=== PATIENT | female | born 1930 | race Caucasian/White ===

== ENCOUNTER 2017-07-05 23:17 | Emergency (ER) | payer MEDICARE, OTHER ==
[2017-07-06 00:47] VITALS: BP 172/82
--- NOTE | 2017-07-06 01:09 | EDM.PDOC ---
ED HPI GENERAL MEDICAL PROBLEM - General Chief Complaint: Lower Extremity Injury/Pain Stated Complaint: LEFT LEG PAIN Time Seen by Provider: 07/06/17 00:55 Source of Information: Reports: Patient History Limitations: Reports: No Limitations - History of Present Illness INITIAL COMMENTS - FREE TEXT/NARRATIVE: 87 yo female here with onset of L leg pain yesterday that is getting worse. No SOB or pleuritic chest pain. Is worried about a DVT. Has not discussed with her provider. No fever or chills. Onset Date: 07/04/17 Duration: Hour(s):, Getting Worse Location: Reports: Lower Extremity, Left Quality: Reports: Ache Severity: Moderate Improves with: Reports: Immobilization, Rest Worsens with: Reports: Movement Context: Reports: Other (experienced a savage abrasion last week before this all began. 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 Pain Score (Numeric/FACES): 6 - Related Data Allergies Allergy/AdvReac Type Severity Reaction Status Date / Time Penicillins Allergy Intermediate Rash Verified 07/06/17 00:55 sulindac [From Clinoril] Allergy Mild Cannot Verified 07/06/17 00:55 Remember amlodipine besylate AdvReac Intermediate Nausea Verified 07/06/17 00:55 [From Norvasc] ciprofloxacin HCl AdvReac Intermediate Nausea Verified 07/06/17 00:55 [From Cipro] Sulfa (Sulfonamide AdvReac Intermediate Nausea and Verified 07/06/17 00:55 Antibiotics) Vomiting ciprofloxacin [From Cipro] AdvReac Mild Nausea Verified 07/06/17 00:55 levofloxacin [From Levaquin] AdvReac Mild Muscle Verified 07/06/17 00:55 Aches metronidazole [From Flagyl] AdvReac Mild Nausea Verified 07/06/17 00:55 Metronidazole HCl AdvReac Mild Nausea Verified 07/06/17 00:55 [From Flagyl] indomethacin AdvReac Nausea and Verified 07/06/17 00:55 Vomiting Home Meds: Home Meds Aspirin [Adult Low Dose Aspirin EC] 81 mg PO DAILY 08/21/13 [History] Clopidogrel [Plavix] 75 mg PO DAILY 08/21/13 [History] Methylcellulose [Citrucel] 15 - 20 gm PO ASDIRECTED PRN 08/21/13 [History] atorvaSTATin [Lipitor] 40 mg PO BEDTIME 08/21/13 [History] Calcium Carbonate/Vitamin D3 [Cvs Calcium + Vitamin D3 Sftgl] 1 each PO BID [History] Nitroglycerin [Nitrostat] 0.4 mg SL ASDIRECTED PRN 05/18/14 [History] Acetaminophen [Tylenol] 325 - 650 mg PO Q4H PRN 09/19/14 [History] Polyethylene Glycol 3350 [MiraLAX] 17 gm PO DAILY PRN 09/19/14 [History] Losartan [Cozaar] 50 mg PO BID #60 tablet 10/27/14 [Rx] Lutein 1 tab PO DAILY 03/07/15 [History] Furosemide [Furosemide] 2 tab PO DAILY 10/06/16 [History] Isosorbide Mononitrate [Isosorbide Mononitrate ER] 1 tab PO DAILY 10/06/16 [ History] Cephalexin 500 mg PO Q6H #30 tablet 07/06/17 [Rx] Cranberry 1 tab PO DAILY 07/06/17 [History] Loratadine [Claritin] 10 mg PO DAILY 07/06/17 [History] Pantoprazole 20 mg PO BEDTIME 07/06/17 [History] Past Medical History HEENT History: Reports: Cataract, Impaired Vision Cardiovascular History: Reports: CAD, Heart Failure, Heart Murmur, Hypertension , [place] Respiratory History: Reports: None Gastrointestinal History: Reports: GERD Genitourinary History: Reports: Acute Renal Failure, Other (See Below) Other Genitourinary History: had acute renal failure from sepsis in 2014. 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 OB/BYN History: prolapsed uterus surgery Musculoskeletal History: Reports: Osteoarthritis Other Musculoskeletal History: spinal stenosis Neurological History: Reports: None Other Hematologic History: sepsis Dermatologic History: Reports: Cellulitis - Infectious Disease History Infectious Disease History: Reports: Chicken Pox, Measles, Mumps - Past Surgical History HEENT Surgical History: Reports: Cataract Surgery Cardiovascular Surgical History: Reports: Coronary Artery Bypass Female Surgical History: Reports: Other (See Below) Other Female Surgeries/Procedures: bladder sling (mesh) Musculoskeletal Surgical History: Reports: None Social & Family History - Tobacco Use Smoking Status *Q: Never Smoker Second Hand Smoke Exposure: No - Caffeine Use Caffeine Use: Reports: Coffee - Alcohol Use Days Per Week of Alcohol Use: 0 - Recreational Drug Use Recreational Drug Use: No Review of Systems - Review of Systems Review Of Systems: See Below Constitutional: Reports: No Symptoms. Denies: Chills, Fever Respiratory: Reports: No Symptoms. Denies: Shortness of Breath, Pleuritic Chest Pain Cardiovascular: Reports: No Symptoms Musculoskeletal: Reports: Leg Pain (L calf) Skin: Reports: Erythema (Slight redness of the left leg below the knee. ) Neurological: Reports: No Symptoms Psychiatric: Reports: No Symptoms ED EXAM, GENERAL - Physical Exam Exam: See Below Exam Limited By: No Limitations General Appearance: Alert, WD/WN, No Apparent Distress Ears: Normal Canal, Hearing Grossly Normal Ear Exam: Bilateral Ear: Auricle Normal, Canal Normal Nose: Normal Inspection, Normal Mucosa, No Blood Throat/Mouth: Normal Inspection, Normal Voice, No Airway Compromise Head: Atraumatic, Normocephalic Neck: Normal Inspection, Supple, Non-Tender Respiratory/Chest: No Respiratory Distress, Lungs Clear, No Accessory Muscle Use Cardiovascular: Regular Rate, Rhythm Extremities: Pedal Edema (trace to 1+ pitting edema to both LE's below the knees. ), Leg Pain (L calf tender) Neurological: Alert, Oriented, CN II-XII Intact, No Motor/Sensory Deficits Psychiatric: Normal Affect, Normal Mood Skin Exam: Warm, Dry, Intact, No Rash, Erythema (slight redness to the L leg below the knee, not hot to touch. ) Lymphatic: No Adenopathy Course - Vital Signs Text/Narrative:: Acetaminophen 1000 mg po, Cephalexin 500 mg po Last Recorded V/S: Last Vital Signs Temp 35.8 C 07/06/17 00:46 Pulse 97 07/06/17 00:46 Resp 20 07/06/17 00:46 BP 172/82 H 07/06/17 00:46 Pulse Ox 97 07/06/17 00:46 - Orders/Labs/Meds Labs: Laboratory Tests 07/06/17 07/06/17 Range/Units 01:10 01:10 WBC 13.0 H (4.5-11.0) K/uL RBC 4.30 (3.30-5.50) M/uL Hgb 12.5 (12.0-15.0) g/dL Hct 38.1 (36.0-48.0) % MCV 89 (80-98) fL MCH 29 (27-31) pg MCHC 33 (32-36) % Plt Count 201 (150-400) K/uL D-Dimer, Quantitative 544 H (0.0-400.0) ng/mL Meds: Medications Discontinued Medications Generic Name Dose Route Start Last Admin Trade Name Sugar PRN Reason Stop Dose Admin Acetaminophen 1,000 mg 07/06/17 01:43 Tylenol Extra Strength PO 07/06/17 01:44 ONETIME ONE Cephalexin 500 mg 07/06/17 01:43 Keflex PO 07/06/17 01:44 ONETIME ONE Departure - Departure Time of Disposition: 02:00 Disposition: Home, Self-Care 01 Condition: Good Clinical Impression: Cellulitis Qualifiers: Site of cellulitis: extremity Site of cellulitis of extremity: lower extremity Laterality: left Qualified Code(s): L03.116 - Cellulitis of left lower limb - Discharge Information Prescriptions: Cephalexin 500 mg PO Q6H #30 tablet Referrals: Maciel Salvador MD [Primary Care Provider] - Forms: ED Department Discharge Care Plan Goals: Cephalexin 500 mg every 6 hrs with food. Acetaminophen 1000 mg every 6 hrs as needed for pain relief. Recheck with your provider on Monday afternoon if possible. Keep that leg elevated.
[2017-07-06] MEDS ORDERED: Cephalexin 250 MG Cap PO ONE (01:43)
[2017-07-06] MEDS ORDERED: Acetaminophen 500 MG Tab PO ONE (01:43)
== END 2017-07-06 02:00 | disposition home or self-care (01) ==
LOC: JP.ED 23:17
DX: L03.116 Cellulitis of left lower limb (principal); I25.2 Old myocardial infarction; I11.0 Hypertensive heart disease with heart failure; I50.9 Heart failure, unspecified; I25.10 Atherosclerotic heart disease of native coronary artery without angina pectoris; K21.9 Gastro-esophageal reflux disease without esophagitis; M19.90 Unspecified osteoarthritis, unspecified site; Z98.49 Cataract extraction status, unspecified eye; Z95.1 Presence of aortocoronary bypass graft; Z98.890 Other specified postprocedural states; Z79.82 Long term (current) use of aspirin; Z79.02 Long term (current) use of antithrombotics/antiplatelets; Z79.899 Other long term (current) drug therapy; Z88.0 Allergy status to penicillin; Z88.1 Allergy status to other antibiotic agents; Z88.2 Allergy status to sulfonamides; Z88.8 Allergy status to other drugs, medicaments and biological substances
CPT/HCPCS: 36415; 85027; 85379; 99284; A9270

== ENCOUNTER 2018-03-22 15:46 | Emergency (ER) | payer MEDICARE, OTHER ==
--- NOTE | 2018-03-22 16:00 | EDM.PDOC ---
ED HPI GENERAL MEDICAL PROBLEM - General Chief Complaint: Cardiovascular Problem Stated Complaint: CHEST PAINS Time Seen by Provider: 03/22/18 15:58 Source of Information: Reports: Patient, Old Records, RN History Limitations: Reports: Other (Vague historian) - History of Present Illness INITIAL COMMENTS - FREE TEXT/NARRATIVE: 87 yo female here after onset of substernal chest pain that began while eating lunch about 12:30pm today. She may have mild associated SOB, but no nausea, diaphoresis or radiation of the pain. She took NTG SL x 2 without relief. Has a pHx of GERD and states that she cannot often distinguish her heart pain from her heart burn pain. Does get SOB with mild exertion, this is not new. No recent calf pain or leg swelling. Onset: Today Onset Date: 03/22/18 Onset Time: 12:30 Duration: Hour(s): Location: Reports: Chest (sternal) Quality: Reports: Other (Not able to describe just says "it hurts") Severity: Mild Improves with: Reports: None (not NTG) Worsens with: Reports: Other (unknown) Context: Reports: Other (Hx of both CAD and GERD) Associated Symptoms: Reports: Chest Pain. 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) Anterior Chest Pain Score (Numeric/FACES): 5 - Related Data Allergies Allergy/AdvReac Type Severity Reaction Status Date / Time Penicillins Allergy Intermediate Rash Verified 03/22/18 15:56 sulindac [From Clinoril] Allergy Mild Cannot Verified 03/22/18 15:56 Remember amlodipine besylate AdvReac Intermediate Nausea Verified 03/22/18 15:56 [From Norvasc] ciprofloxacin HCl AdvReac Intermediate Nausea Verified 03/22/18 15:56 [From Cipro] Sulfa (Sulfonamide AdvReac Intermediate Nausea and Verified 03/22/18 15:56 Antibiotics) Vomiting ciprofloxacin [From Cipro] AdvReac Mild Nausea Verified 03/22/18 15:56 levofloxacin [From Levaquin] AdvReac Mild Muscle Verified 03/22/18 15:56 Aches metronidazole [From Flagyl] AdvReac Mild Nausea Verified 03/22/18 15:56 Metronidazole HCl AdvReac Mild Nausea Verified 03/22/18 15:56 [From Flagyl] indomethacin AdvReac Nausea and Verified 03/22/18 15:56 Vomiting Home Meds: Home Meds Aspirin [Adult Low Dose Aspirin EC] 81 mg PO DAILY 08/21/13 [History] Clopidogrel [Plavix] 75 mg PO DAILY 08/21/13 [History] Methylcellulose [Citrucel] 15 - 20 gm PO ASDIRECTED PRN 08/21/13 [History] atorvaSTATin [Lipitor] 40 mg PO BEDTIME 08/21/13 [History] Calcium Carbonate/Vitamin D3 [[facility]vs Calcium + Vitamin D3 Sftgl] 1 each PO BID [History] Nitroglycerin [Nitrostat] 0.4 mg SL ASDIRECTED PRN 05/18/14 [History] Acetaminophen [Tylenol] 325 - 650 mg PO Q4H PRN 09/19/14 [History] Polyethylene Glycol 3350 [MiraLAX] 17 gm PO DAILY PRN 09/19/14 [History] Losartan [Cozaar] 50 mg PO BID #60 tablet 10/27/14 [Rx] Lutein 1 tab PO DAILY 03/07/15 [History] Furosemide 2 tab PO DAILY 10/06/16 [History] Isosorbide Mononitrate [Isosorbide Mononitrate ER] 1 tab PO DAILY 10/06/16 [ History] Cranberry 1 tab PO DAILY 07/06/17 [History] Loratadine [Claritin] 10 mg PO Q48H 07/06/17 [History] Pantoprazole [ProTONIX] 40 mg PO DAILY 03/22/18 [History] Past Medical History HEENT History: Reports: Cataract, Impaired Vision Cardiovascular History: Reports: CAD, Heart Failure, Heart Murmur, Hypertension , [place] Respiratory History: Reports: None Gastrointestinal History: Reports: GERD Genitourinary History: Reports: Acute Renal Failure, Other (See Below) Other Genitourinary History: had acute renal failure from sepsis in 2014. 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 OB/BYN History: prolapsed uterus surgery Musculoskeletal History: Reports: Osteoarthritis Other Musculoskeletal History: spinal stenosis Neurological History: Reports: None Other Hematologic History: sepsis Dermatologic History: Reports: Cellulitis - Infectious Disease History Infectious Disease History: Reports: Chicken Pox, Measles, Mumps - Past Surgical History HEENT Surgical History: Reports: Cataract Surgery Cardiovascular Surgical History: Reports: Coronary Artery Bypass Female Surgical History: Reports: Other (See Below) Other Female Surgeries/Procedures: bladder sling (mesh) Musculoskeletal Surgical History: Reports: None Social & Family History - Tobacco Use Smoking Status *Q: Never Smoker Second Hand Smoke Exposure: No - Caffeine Use Caffeine Use: Reports: Coffee - Alcohol Use Days Per Week of Alcohol Use: 0 - Recreational Drug Use Recreational Drug Use: No ED ROS GENERAL - Review of Systems Review Of Systems: See Below Constitutional: Reports: No Symptoms HEENT: Reports: No Symptoms Respiratory: Reports: No Symptoms Cardiovascular: Reports: Chest Pain Endocrine: Reports: No Symptoms GI/Abdominal: Reports: No Symptoms : Reports: No Symptoms Musculoskeletal: Reports: No Symptoms Skin: Reports: No Symptoms Neurological: Reports: No Symptoms ED EXAM, GENERAL - Physical Exam Exam: See Below Exam Limited By: No Limitations General Appearance: Alert, WD/WN, No Apparent Distress Eye Exam: Bilateral Eye: Normal Inspection, PERRL Ears: Normal External Exam, Normal Canal, Hearing Grossly Normal, Normal TMs Ear Exam: Bilateral Ear: Auricle Normal, Canal Normal Nose: Normal Inspection, Normal Mucosa, No Blood Throat/Mouth: Normal Inspection, Normal Lips, Normal Oropharynx, Normal Voice, No Airway Compromise Head: Atraumatic, Normocephalic Neck: Normal Inspection Respiratory/Chest: No Respiratory Distress, Lungs Clear, Normal Breath Sounds, No Accessory Muscle Use Cardiovascular: Regular Rate, Rhythm, No Edema GI/Abdominal: Normal Bowel Sounds, Soft, Non-Tender, No Distention Back Exam: Normal Inspection. No: CVA Tenderness (R), CVA Tenderness (L) Extremities: Normal Inspection, Normal Range of Motion, Non-Tender, No Pedal Edema Neurological: Alert, Oriented, CN II-XII Intact, Normal Cognition, No Motor/ Sensory Deficits Psychiatric: Normal Affect, Normal Mood Skin Exam: Warm, Dry, Intact, Normal Color, No Rash EKG INTERPRETATION EKG Date: 03/22/18 Time: 15:55 Rhythm: NSR Rate (Beats/Min): 83 [place]: Normal P-Wave: Present (1st degree A-V block) QRS: Normal ST-T: Normal QT: Normal Comparison: No Change (from EKG of 10/06/16) Course - Vital Signs Text/Narrative:: GI cocktail po-no significant change. Last Recorded V/S: Last Vital Signs Temp 35.9 C 03/22/18 16:37 Pulse 83 03/22/18 16:37 Resp 14 03/22/18 16:37 BP 166/77 H 03/22/18 16:37 Pulse Ox 97 03/22/18 16:37 - Orders/Labs/Meds Orders: Active Orders 24 hr Category Date Time Status Cardiac Monitoring [RC] .As Directed Care 03/22/18 15:48 Active EKG Documentation Completion [RC] ASDIRECTED Care 03/22/18 15:49 Active EKG 12 Lead [EK] Routine Ther 03/22/18 15:49 Ordered Labs: Laboratory Tests 03/22/18 03/22/18 Range/Units 16:25 16:25 WBC 10.5 (4.5-11.0) K/uL RBC 4.30 (3.30-5.50) M/uL Hgb 12.8 (12.0-15.0) g/dL Hct 37.9 (36.0-48.0) % MCV 88 (80-98) fL MCH 30 (27-31) pg MCHC 34 (32-36) % Plt Count 189 (150-400) K/uL Sodium 129 L (140-148) mmol/L Potassium 4.0 (3.6-5.2) mmol/L Chloride 94 L (100-108) mmol/L Carbon Dioxide 26 (21-32) mmol/L Anion Gap 13.0 (5.0-14.0) mmol/L BUN 23 H (7-18) mg/dL Creatinine 1.6 H (0.6-1.0) mg/dL Est Cr Clr Drug Dosing 20.10 mL/min Estimated GFR (MDRD) 30 L (>60) Glucose 119 H (74-106) mg/dL Calcium 9.1 (8.5-10.1) mg/dL Troponin I < 0.017 (0.000-0.056) ng/mL Meds: Medications Discontinued Medications Generic Name Dose Route Start Last Admin Trade Name Freq PRN Reason Stop Dose Admin Al Hydroxide/Mg Hydroxide 15 0 ml 03/22/18 16:08 03/22/18 16:15 ml/ Lidocaine HCl 15 ml PO 03/22/18 16:09 30 ml ONETIME ONE Administration Departure - Departure Time of Disposition: 17:10 Disposition: Home, Self-Care 01 Condition: Good Clinical Impression: Nonspecific chest pain Referrals: Maciel Salvador MD [Primary Care Provider] - Forms: ED Department Discharge - My Orders Last 24 Hours: My Active Orders 03/22/18 15:48 Cardiac Monitoring [RC] .As Directed 03/22/18 15:49 EKG Documentation Completion [RC] ASDIRECTED EKG 12 Lead [EK] Routine - Assessment/Plan Last 24 Hours: My Active Orders 03/22/18 15:48 Cardiac Monitoring [RC] .As Directed 03/22/18 15:49 EKG Documentation Completion [RC] ASDIRECTED EKG 12 Lead [EK] Routine
[2018-03-22] MEDS ORDERED: Alum Hydrox/Mag Hydrox/Simeth 15 ML, Lidocaine 2% 15 ML PO ONE ×2 (16:08)
[2018-03-22 16:31] VITALS: BP 166/77
== END 2018-03-22 17:21 | disposition home or self-care (01) ==
LOC: JP.ED 15:46
DX: R07.9 Chest pain, unspecified (principal); I11.0 Hypertensive heart disease with heart failure; I15.0 Renovascular hypertension; I25.10 Atherosclerotic heart disease of native coronary artery without angina pectoris; Z88.0 Allergy status to penicillin; Z88.2 Allergy status to sulfonamides; Z88.8 Allergy status to other drugs, medicaments and biological substances; Z88.1 Allergy status to other antibiotic agents; Z79.82 Long term (current) use of aspirin; Z79.899 Other long term (current) drug therapy
CPT/HCPCS: 36415; 80048; 84484; 85027; 93005; 99285; A9270

== ENCOUNTER 2018-06-12 09:56 | Emergency (ER) | payer MEDICARE, OTHER ==
--- NOTE | 2018-06-12 10:12 | EDM.PDOC ---
ED HPI GENERAL MEDICAL PROBLEM - General Chief Complaint: Chest Pain Stated Complaint: CHEST PAIN/PRIOR HEART ATTACK Time Seen by Provider: 06/12/18 10:10 Source of Information: Reports: Patient, Family, Old Records History Limitations: Reports: No Limitations - History of Present Illness INITIAL COMMENTS - FREE TEXT/NARRATIVE: 88 yo female presents accompanied by her for chest "lightness". This has been present since she awoke this morning about 0700h. Is a very vague, indecisive historian. According to her she has been to a doctor in [place] at least weekly for a variety of complaints. Feels well about every other day. Today for her current sx's, in addition to her usual meds, she took antacids and NTG, none of these helped a lot. Says it feels slightly hard to breath. Does have a coronary heart dz history. Onset: Today Onset Date: 06/12/18 Onset Time: 07:00 Duration: Hour(s): Location: Reports: Chest Quality: Reports: Other ('Lightness') Severity: Mild Improves with: Reports: None Worsens with: Reports: None Context: Reports: Other (Hx of CAD) Associated Symptoms: Reports: Nausea/Vomiting (intermittent mild nausea.) Treatments [employer]PER[employer]OR: Reports: Other (see below) (See HPI) - Related Data Allergies Allergy/AdvReac Type Severity Reaction Status Date / Time Penicillins Allergy Intermediate Rash Verified 06/12/18 10:22 sulindac [From Clinoril] Allergy Mild Cannot Verified 06/12/18 10:22 Remember amlodipine besylate AdvReac Intermediate Nausea Verified 06/12/18 10:22 [From Norvasc] ciprofloxacin HCl AdvReac Intermediate Nausea Verified 06/12/18 10:22 [From Cipro] Sulfa (Sulfonamide AdvReac Intermediate Nausea and Verified 06/12/18 10:22 Antibiotics) Vomiting ciprofloxacin [From Cipro] AdvReac Mild Nausea Verified 06/12/18 10:22 levofloxacin [From Levaquin] AdvReac Mild Muscle Verified 06/12/18 10:22 Aches metronidazole [From Flagyl] AdvReac Mild Nausea Verified 06/12/18 10:22 Metronidazole HCl AdvReac Mild Nausea Verified 06/12/18 10:22 [From Flagyl] indomethacin AdvReac Nausea and Verified 07/17/18 10:22 Vomiting Home Meds: Home Meds Aspirin [Adult Low Dose Aspirin EC] 81 mg PO DAILY 08/21/13 [History] Clopidogrel [Plavix] 75 mg PO DAILY 08/21/13 [History] Methylcellulose [Citrucel] 15 - 20 gm PO ASDIRECTED PRN 08/21/13 [History] atorvaSTATin [Lipitor] 40 mg PO BEDTIME 08/21/13 [History] Calcium Carbonate/Vitamin D3 [Cvs Calcium + Vitamin D3 Sftgl] 1 each PO BID [History] Nitroglycerin [Nitrostat] 0.4 mg SL ASDIRECTED PRN 05/18/14 [History] Polyethylene Glycol 3350 [MiraLAX] 17 gm PO DAILY PRN 09/19/14 [History] Losartan [Cozaar] 50 mg PO BID #60 tablet 10/27/14 [Rx] Lutein 1 tab PO DAILY 03/07/15 [History] Isosorbide Mononitrate [Isosorbide Mononitrate ER] 1 tab PO DAILY 10/06/16 [ History] Cranberry 1 tab PO DAILY 07/06/17 [History] Loratadine [Claritin] 10 mg PO DAILY 07/06/17 [History] Nitroglycerin [Nitrostat] 0.4 mg SL ASDIRECTED PRN #1 tab.sl 03/22/18 [Rx] Pantoprazole [ProTONIX] 40 mg PO DAILY 03/22/18 [History] Acetaminophen [Tylenol] 650 mg PO Q4H 06/12/18 [History] Albuterol [Proventil HFA] 2 puff INH Q4H PRN 06/12/18 [History] Clotrimazole [Clotrimazole 1%] 1 applic TOP BID 06/12/18 [History] Famotidine 1 tab PO BID 06/12/18 [History] Furosemide 2 tab PO DAILY 06/12/18 [History] Past Medical History HEENT History: Reports: Cataract, Impaired Vision Cardiovascular History: Reports: CAD, Heart Failure, Heart Murmur, Hypertension , [place] Respiratory History: Reports: None Gastrointestinal History: Reports: GERD Genitourinary History: Reports: Acute Renal Failure, Other (See Below) Other Genitourinary History: had acute renal failure from sepsis in 2014. 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: Other [employer]IDENT [employer] History: prolapsed uterus surgery Musculoskeletal History: Reports: Osteoarthritis Other Musculoskeletal History: spinal stenosis Neurological History: Reports: None Other Hematologic History: sepsis Dermatologic History: Reports: Cellulitis - Infectious Disease History Infectious Disease History: Reports: Chicken Pox, Measles, Mumps - Past Surgical History HEENT Surgical History: Reports: Cataract Surgery Cardiovascular Surgical History: Reports: Coronary Artery Bypass Female Surgical History: Reports: Other (See Below) Other Female Surgeries/Procedures: bladder sling (mesh) Musculoskeletal Surgical History: Reports: None Social & Family History - Caffeine Use Caffeine Use: Reports: Coffee ED ROS GENERAL - Review of Systems Review Of Systems: See Below Constitutional: Reports: No Symptoms HEENT: Reports: No Symptoms Respiratory: Reports: Other (slightly hard to breath) Cardiovascular: Reports: Other (chest "lightness") Endocrine: Reports: No Symptoms GI/Abdominal: Reports: Nausea (mild, intermittently). Denies: Vomiting : Reports: No Symptoms Musculoskeletal: Reports: No Symptoms Skin: Reports: No Symptoms Neurological: Reports: No Symptoms Psychiatric: Reports: No Symptoms ED EXAM, GENERAL - Physical Exam Exam: See Below Exam Limited By: Other (poor historian, vague, indecisive) General Appearance: Alert, WD/WN, No Apparent Distress Eye Exam: Bilateral Eye: Normal Inspection Ears: Normal External Exam, Normal Canal, Hearing Loss Ear Exam: Bilateral Ear: Auricle Normal, Canal Normal Nose: Normal Inspection, Normal Mucosa, No Blood Throat/Mouth: Normal Inspection, Normal Lips, Normal Oropharynx, Normal Voice, No Airway Compromise Head: Atraumatic, Normocephalic Neck: Normal Inspection Respiratory/Chest: No Respiratory Distress, Lungs Clear, Normal Breath Sounds, No Accessory Muscle Use, Other (mild anterior chest wall tenderness with palpation. ). No: Chest Non-Tender Cardiovascular: Regular Rate, Rhythm, No Edema GI/Abdominal: Normal Bowel Sounds, Soft, Non-Tender, No Distention Back Exam: Normal Inspection. No: CVA Tenderness (R), CVA Tenderness (L) Extremities: Normal Inspection, Normal Range of Motion, Non-Tender, No Pedal Edema Neurological: Alert, Oriented, CN II-XII Intact, Normal Cognition, No Motor/ Sensory Deficits Psychiatric: Normal Affect, Normal Mood Skin Exam: Warm, Dry, Intact, Normal Color, No Rash Lymphatic: No Adenopathy EKG INTERPRETATION EKG Date: 06/12/18 Time: 10:05 Rhythm: NSR Rate (Beats/Min): 59 [place]: Normal P-Wave: Present QRS: Normal ST-T: Normal QT: Normal Comparison: Change From Previous EKG (T's inverted in lead III, and less so in other inf leads.) Course - Vital Signs Text/Narrative:: feels better after acetaminophen. Last Recorded V/S: Last Vital Signs Temp 35.9 C 06/12/18 10:20 Pulse 64 06/12/18 11:19 Resp 9 L 06/12/18 11:19 BP 129/64 06/12/18 11:19 Pulse Ox 98 06/12/18 11:19 - Orders/Labs/Meds Orders: Active Orders 24 hr Category Date Time Status Cardiac Monitoring [RC] .As Directed Care 06/12/18 10:12 Active EKG Documentation Completion [RC] ASDIRECTED Care 06/12/18 10:12 Active Chest 2V [CR] Stat Exams 06/12/18 11:10 Taken Sodium Chloride 0.9% [Saline Flush] Med 06/12/18 10:13 Active 10 ml FLUSH ASDIRECTED PRN Saline Lock Insert [OM.PC] Routine Oth 06/12/18 10:13 Ordered EKG 12 Lead [EK] Routine Ther 06/12/18 10:12 Ordered Medication Orders Sodium Chloride (Saline Flush) 10 ml FLUSH ASDIRECTED PRN PRN Reason: Keep Vein Open Last Admin: 06/12/18 10:58 Dose: 10 ml Labs: Laboratory Tests 06/12/18 06/12/18 06/12/18 Range/Units 10:33 10:33 11:10 WBC 14.0 H (4.5-11.0) K/uL RBC 4.36 (3.30-5.50) M/uL Hgb 13.0 (12.0-15.0) g/dL Hct 38.9 (36.0-48.0) % MCV 89 (80-98) fL MCH 30 (27-31) pg MCHC 33 (32-36) % Plt Count 229 (150-400) K/uL Sodium 134 L (140-148) mmol/L Potassium 4.2 (3.6-5.2) mmol/L Chloride 101 (100-108) mmol/L Carbon Dioxide 27 (21-32) mmol/L Anion Gap 10.2 (5.0-14.0) mmol/L BUN 39 H D (7-18) mg/dL Creatinine 1.5 H (0.6-1.0) mg/dL Est Cr Clr Drug Dosing 22.42 mL/min Estimated GFR (MDRD) 33 L (>60) Glucose 105 (74-106) mg/dL Calcium 8.8 (8.5-10.1) mg/dL Troponin I < 0.017 (0.000-0.056) ng/mL C-Reactive Protein 0.13 (0.0-0.3) mg/dL Meds: Medications Generic Name Dose Route Start Last Admin Trade Name Freq PRN Reason Stop Dose Admin Sodium Chloride 10 ml 06/12/18 10:13 06/12/18 10:58 Saline Flush FLUSH 10 ml ASDIRECTED PRN Administration Keep Vein Open Discontinued Medications Generic Name Dose Route Start Last Admin Trade Name Freq PRN Reason Stop Dose Admin Acetaminophen 1,000 mg 06/12/18 10:21 06/12/18 10:58 Tylenol Extra Strength PO 06/12/18 10:22 1,000 mg ONETIME ONE Administration - Radiology Interpretation Free Text/Narrative:: CXR-neg Departure - Departure Time of Disposition: 11:52 Disposition: Home, Self-Care 01 Condition: Good Clinical Impression: Chest wall pain Referrals: Sanjay Bee MD [Primary Care Provider] - Forms: ED Department Discharge Additional Instructions: Continue your usual medications. Add acetaminophen 1000 mg every 6 hrs as needed for pain relief. See your doctor for recheck the end of this week, call for an appt. Return if worse. - My Orders Last 24 Hours: My Active Orders 06/12/18 10:12 Cardiac Monitoring [RC] .As Directed EKG Documentation Completion [RC] ASDIRECTED EKG 12 Lead [EK] Routine 06/12/18 10:13 Sodium Chloride 0.9% [Saline Flush] 10 ml FLUSH ASDIRECTED PRN Saline Lock Insert [OM.PC] Routine 06/12/18 11:10 Chest 2V [CR] Stat - Assessment/Plan Last 24 Hours: My Active Orders 06/12/18 10:12 Cardiac Monitoring [RC] .As Directed EKG Documentation Completion [RC] ASDIRECTED EKG 12 Lead [EK] Routine 06/12/18 10:13 Sodium Chloride 0.9% [Saline Flush] 10 ml FLUSH ASDIRECTED PRN Saline Lock Insert [OM.PC] Routine 06/12/18 11:10 Chest 2V [CR] Stat
[2018-06-12] MEDS ORDERED: Sodium Chloride 0.9% 10 ML Syringe FLUSH PRN (10:13)
[2018-06-12] MEDS ORDERED: Acetaminophen 500 MG Tab PO ONE (10:21)
[2018-06-12 11:20] VITALS: BP 129/64
--- NOTE | 2018-06-12 12:35 | CR ---
CHEST: 2 view CLINICAL HISTORY:Chest pain COMPARISON:2014 FINDINGS: The heart size is upper limits of normal. Pulmonary vascularity is normal. There has been previous sternotomy. There are atherosclerotic changes in the aorta.. IMPRESSION: No acute cardiopulmonary process or significant interval change
== END 2018-06-12 12:17 | disposition home or self-care (01) ==
LOC: JP.ED 09:56
DX: R07.89 Other chest pain (principal); I11.0 Hypertensive heart disease with heart failure; I50.9 Heart failure, unspecified; I25.2 Old myocardial infarction; K21.9 Gastro-esophageal reflux disease without esophagitis; Z79.82 Long term (current) use of aspirin; Z79.899 Other long term (current) drug therapy; Z88.0 Allergy status to penicillin; Z88.2 Allergy status to sulfonamides; Z88.8 Allergy status to other drugs, medicaments and biological substances
CPT/HCPCS: 36415; 71046; 80048; 84484; 85027; 86140; 93005; 99285; A9270; J7050